=== PATIENT | male | born 1940 | race Caucasian/White ===

== ENCOUNTER 2017-06-12 09:13 | Day surgery (SDC) | payer OTHER ==
[~2017-06-12] VITALS: Ht 180.3 cm; Wt 95.5 kg
[2017-06-12 09:32] VITALS: BP 134/95
[2017-06-12] MEDS ORDERED: PROPOFOL 10 MG/ML, 20ML ONE (09:48)
[2017-06-12] MEDS ORDERED: GARL10002 PO (09:50)
[2017-06-12] MEDS ORDERED: LISI5TAB7 PO (09:50)
[2017-06-12] MEDS ORDERED: UBID100C41 PO (09:50)
[2017-06-12] MEDS ORDERED: METO50TA82 PO (09:50)
[2017-06-12] MEDS ORDERED: RIVA20TA PO (09:50)
[2017-06-12] MEDS ORDERED: ASCO10004 PO (09:50)
[2017-06-12] MEDS ORDERED: LACT1CAP43 PO (09:50)
[2017-06-12] MEDS ORDERED: MULT-516 PO (09:50)
[2017-06-12] MEDS ORDERED: CHOL3000 PO (09:50)
[2017-06-12 10:04] LABS: ANION GAP 8 mmol/L (5-15); CALCIUM 8.7 mg/dL (8.5-10.1); CHLORIDE 109 mmol/L (98-107)
[2017-06-12 10:06] LABS: CREATININE 1.19 mg/dL (0.7-1.3)
[2017-06-12] MEDS ORDERED: METOPROLOL TARTRATE 50 MG TABLET PO SCH (21:00)
[2017-06-13] MEDS ORDERED: RIVAROXABAN 20 MG TABLET PO SCH (09:00)
[2017-06-13] MEDS ORDERED: TEMPLATE NON-FORMULARY MED. (Ubidecarenone** (Co Q-10**) 100 MG) PO SCH (09:00)
[2017-06-13] MEDS ORDERED: CHOLECALCIFEROL 3000 UNIT PO SCH (09:00)
[2017-06-13] MEDS ORDERED: MULTIVITAMIN 1 TABLET PO SCH (09:00)
[2017-06-13] MEDS ORDERED: [UNRECOGNIZED DRUG - REMARK] PO SCH (09:00)
[2017-06-13] MEDS ORDERED: TEMPLATE NON-FORMULARY MED. (Garlic** 1,000 MG) PO SCH (09:00)
[2017-06-13] MEDS ORDERED: TEMPLATE NON-FORMULARY MED. (Ascorbic Acid** (Vitamin C**) 1,000 MG) PO SCH ×2 (09:00)
[2017-06-13] MEDS ORDERED: LISINOPRIL 5 MG TABLET PO SCH (09:00)
== END 2017-06-12 11:42 | disposition home or self-care (01) ==
LOC: CACL 09:13
PROVIDERS: ATTEND Internal Medicine Cardiovascular Disease
DX: I48.91 Unspecified atrial fibrillation (principal); I10 Essential (primary) hypertension; G47.30 Sleep apnea, unspecified
CPT/HCPCS: 36415; 80048; 92960; J2704

== ENCOUNTER → 2017-06-29 | Outpatient (CLI) | payer OTHER ==
[~2017-06-29] MED LIST: ASCO10004 PO; CHOL3000 PO; GARL10002 PO; LACT1CAP43 PO; LISI5TAB7 PO; METO50TA82 PO; MULT-516 PO; REGADENOSON 0.4 MG/5 ML SYRINGE ONE; RIVA20TA PO; UBID100C41 PO
== END | disposition home or self-care (01) ==
LOC: RAD 07:17
PROVIDERS: ATTEND Internal Medicine Cardiovascular Disease
DX: I25.89 Other forms of chronic ischemic heart disease (principal); I48.91 Unspecified atrial fibrillation; I25.5 Ischemic cardiomyopathy; I51.7 Cardiomegaly; I10 Essential (primary) hypertension
CPT/HCPCS: 78452; 93017; 93306; A9502; J2785

== ENCOUNTER 2017-07-15 08:57 | Day surgery (SDC) | payer OTHER ==
[~2017-07-15] VITALS: Ht 180.3 cm; Wt 93.0 kg
[~2017-07-15 08:57] MED LIST changes: -REGADENOSON 0.4 MG/5 ML SYRINGE ONE
[2017-07-15 10:07] VITALS: BP 156/86
[2017-07-15] MEDS ORDERED: LOSA50TA6 PO (10:13)
[2017-07-15 10:19] LABS: BASOPHILS # (AUTO) 0.05 x10^3/uL (0-0.1); BASOPHILS % (AUTO) 1 % (0-1); EOSINOPHILS # (AUTO) 0.26 x10^3/uL (0-0.4); EOSINOPHILS % (AUTO) 3 % (1-7); LYMPHOCYTES # (AUTO) 2.17 x10^3/uL (1-3.4); LYMPHOCYTES % (AUTO) 27 % (22-44); MD NO; MEAN CORPUSCULAR HEMOGLOBIN 31.4 pg (27.5-34.5); MEAN CORPUSCULAR HGB CONC 34.1 g/dL (33.2-36.2); MEAN CORPUSCULAR VOLUME 92.1 fL (81-97); MEAN PLATELET VOLUME 9.8 fL (7.4-10.4); MONOCYTES # (AUTO) 0.69 x10^3/uL (0.2-0.8); MONOCYTES % (AUTO) 8 % (2-9); NEUTROPHILS # (AUTO) 4.99 x10^3/uL (1.8-6.8); NEUTROPHILS % (AUTO) 61 % (42-75); PLATELET COUNT 161 x10^3/uL (130-400); RED BLOOD COUNT 4.83 x10^6/uL (4.38-5.82); RED CELL DISTRIBUTION WIDTH 12.8 % (9.4-14.8)
[2017-07-15 10:32] LABS: ANION GAP 7 mmol/L (5-15); CALCIUM 8.6 mg/dL (8.5-10.1); CHLORIDE 110 mmol/L (98-107); CREATININE 1.17 mg/dL (0.7-1.3)
[2017-07-15] MEDS ORDERED: MIDAZOLAM 1 MG/ML, 5ML ONE (11:40)
[2017-07-15] MEDS ORDERED: LIDOCAINE 2%, 20ML ONE (11:40)
[2017-07-15] MEDS ORDERED: NITROGLYCERIN 5 MG/ML, 10ML ONE (11:40)
[2017-07-15] MEDS ORDERED: VERAPAMIL 2.5 MG/ML, 2ML ONE ×2 (11:40→12:04)
[2017-07-15] MEDS ORDERED: HEPARIN 1,000 UNITS/ML, 10ML ONE (11:40)
[2017-07-15] MEDS ORDERED: FENTANYL PF 100 MCG/2ML ONE (11:40)
[2017-07-15] MEDS ORDERED: ACETAMINOPHEN 325 MG TABLET PO PRN (13:00)
[2017-07-15] MEDS ORDERED: LOSARTAN 50MG TABLET PO SCH (14:00)
[2017-07-15] MEDS ORDERED: MULTIVITAMIN 1 TABLET PO SCH (14:00)
[2017-07-15] MEDS ORDERED: METOPROLOL TARTRATE 100 MG TABLET PO SCH (18:00)
[2017-07-16] MEDS ORDERED: RIVAROXABAN 20 MG TABLET PO SCH (09:00)
== END 2017-07-15 15:35 ==
LOC: CACL 08:57
PROVIDERS: ATTEND Internal Medicine Cardiovascular Disease
DX: I25.10 Atherosclerotic heart disease of native coronary artery without angina pectoris (principal); I48.91 Unspecified atrial fibrillation; K21.9 Gastro-esophageal reflux disease without esophagitis; Z79.899 Other long term (current) drug therapy; Z88.0 Allergy status to penicillin; I25.5 Ischemic cardiomyopathy; G47.30 Sleep apnea, unspecified
CPT/HCPCS: 36415; 80048; 85025; 93458; 93571; 99156; 99157; C1769; C1887; C1894; J1644; J2250; J3010; J3490; Q9967